=== PATIENT | male | born 1985 | race African-American/Black ===

== ENCOUNTER 2016-09-17 19:31 | Emergency (ER) | payer SELFPAY ==
[~2016-09-17] VITALS: Ht 182.9 cm; Wt 59.0 kg
[2016-09-17] MEDS ORDERED: ONDANSETRON HCL 4MG/2ML VIAL IV STA (20:02)
[2016-09-17] MEDS ORDERED: SODIUM CHLORIDE 0.9% 1,000 ML IV ONE (20:02)
[2016-09-17] MEDS ORDERED: TETANUS, DIPHTHERIA, PERTUSSIS VAC/PF 0.5ML (>7YR OLD) IM ONE (20:15)
[2016-09-17] MEDS ORDERED: LIDOCAINE HCL 1%/EPI 1:200,000 30 ML VIAL MC ONE (20:15)
[2016-09-17] MEDS ORDERED: BACITRACIN ZINC OINT UDPKT TOP ONE (20:15)
[2016-09-17 20:28] LABS: BASOPHILS % 0.3 % (0.0-2.0); EOSINOPHILS % 0.1 % (0.0-5.0); HEMATOCRIT. 45.1 % (42.0-52.0); LYMPHOCYTES % 23.8 % (20.0-50.0); MEAN CORPUSCULAR HEMOGLOBIN 32.2 pg (28.0-32.0); MEAN CORPUSCULAR VOLUME 96.8 fL (80.0-94.0); MEAN PLATELET VOLUME 8.1 fl (7.4-10.4); MONOCYTES % 4.3 % (2.0-8.0); NEUTROPHILS % 71.5 % (40.0-76.0); PLATELET 260 x1000/uL (130-400); RED BLOOD CELL COUNT 4.66 mill/uL (4.7-6.1); RED CELL DISTRIBUTION WIDTH 13.4 % (11.6-14.6)
[2016-09-17 20:33] LABS: CHLORIDE 103 mEq/L (98-107); INR 1.1; PARTIAL THROMBOPLASTIN TIME 25.1 sec (24.0-34.0); PROTHROMBIN TIME 11.4 sec
[2016-09-17 20:37] LABS: CARBON DIOXIDE 15 mEq/L (21-32); ETHANOL BLOOD < 10 mg/dL
[2016-09-17 20:45] LABS: CARBAMAZEPINE < 0.5 ug/mL (4-12); PHENOBARBITAL < 2.1 ug/mL (15.0-40.0); PHENYTOIN < 0.4 ug/mL (10-20); VALPROIC ACID < 3.0 ug/mL (50-100)
[2016-09-17] MEDS ORDERED: ONDANSETRON 4MG ODT PO ONE (20:45)
[2016-09-17] MEDS ORDERED: PHENYTOIN SODIUM EXTENDED 100MG CAPSULE PO ONE (21:30)
[2016-09-18 00:32] VITALS: BP 137/78
== END 2016-09-18 00:41 | disposition home or self-care (01) ==
LOC: ER 20:01
DX: S01.01XA Laceration without foreign body of scalp, initial encounter (principal); R56.9 Unspecified convulsions; W18.30XA Fall on same level, unspecified, initial encounter; Y93.89 Activity, other specified; Y92.89 Other specified places as the place of occurrence of the external cause; Y99.8 Other external cause status
CPT/HCPCS: 12002; 36415; 70450; 71010; 80048; 80076; 80156; 80165; 80184; 80185; 85025; 85610; 85730; 86850; 86900; 86901; 90715; 93005; 99285; G0482; Q0162; Z7610; J7030